=== PATIENT | male | born 1945 | race Caucasian/White ===

== ENCOUNTER 2024-04-14 13:37 | Emergency (ER) | payer MEDICARE, OTHER, SELFPAY ==
[2024-04-14 13:41] VITALS: BP 160/92
[2024-04-14 13:57] LABS: % Basophils 0.5 % (0-2); % Eosinophils 2.3 % (0-6); % Immature Granulocytes 0.3 % (0-0.5); % Lymphocytes 14.7 % (20.5-51.1); % Monocytes 12.5 % (1.7-9.3); % Neutrophils 69.7 % (42.2-75.2); Absolute Basophils 0.1 10^3/uL (0-0.2); Absolute Eosinophils 0.2 10^3/uL (0-0.7); Absolute Lymphocytes 1.3 10^3/uL (1.2-3.4); Absolute Monocytes 1.1 10^3/uL (0.1-0.6); Absolute Neutrophils 6.4 10^3/uL (1.4-6.5); Hematocrit 46.7 % (39.0-52.0); Hemoglobin 16.4 g/dL (13.0-18.0); Mean Corp Hgb Conc. 35.1 g/dL (33.0-37.0); Mean Corpuscular Hgb 32.2 pg (27.0-31.0); Mean Corpuscular Volume 91.6 fL (80.0-94.0); Mean Platelet Volume 9.1 fL (7.4-10.4); Nucleated Red Blood Cells % 0 % (-); Platelet Count 169 10^3/uL (130-400); Red Cell Dist. Width 13.2 % (11.5-14.5); White Blood Cell Count 9.1 10^3/uL (4.8-10.8)
[2024-04-14 14:09] LABS: ALT (SGPT) 27 U/L (0-50); AST (SGOT) 36 U/L (17-59); Albumin 4.1 g/dl (3.5-5.0); Alkaline Phosphatase 78 U/L (38-126); Blood Urea Nitrogen 32 mg/dl (9-20); Calcium 9.4 mg/dl (8.4-10.2); Carbon Dioxide 27 mmol/L (22-30); Chloride 103 mmol/L (98-107); Glucose 132 mg/dl (70-99); Lipase 114 U/L (23-300); Potassium 4.5 mmol/L (3.5-5.1); Sodium 141 mmol/L (135-145); Total Bilirubin 1.5 mg/dl (0.2-1.3); Total Protein 6.7 g/dl (6.3-8.2); eGFR 40.25
[2024-04-14 14:52] LABS: Urine Albumin Trace (Neg - Trace); Urine Bilirubin Negative (Negative); Urine Character Clear (Clear); Urine Color Yellow; Urine Glucose Negative (Negative); Urine Ketone Negative (Negative); Urine Leukocyte 2+ (Negative); Urine Nitrite Negative (Negative); Urine Occult Blood 3+ (Negative); Urine Urobilinogen Negative (Neg - 1+)
[2024-04-14 15:20] LABS: Urine Mucus Few
[2024-04-14 15:21] LABS: Urine Amorphous Seen; Urine Squamous Cell 0-2 /LPF (Few)
[2024-04-14 15:23] LABS: Urine Bacteria Few (Negative); Urine White Cell 30-40 /HPF (0-5)
--- NOTE | 2024-04-14 15:54 | ED.GENMED ---
History of Present Illness
General
Chief Complaint: Flank Pain
Time Seen by Provider: 04/14/24 15:24
History of Present Illness
History of Present Illness:
HPI: 3-4d of L low flank pain to LLQ intermittent in nature. Did not get seen at ER when he was in [place]. Was 8/10 now 4/10. No fevers. No N/V. Resolved COLEMAN.
EXAM:
GENERAL: Well appearing in no distress
HEENT: Moist oral mucosa
CARDIOVASCULAR: No murmurs, normal heart rate, regular rhythm, No chest wall tenderness
PULMONARY: No respiratory distress, breath sounds are clear and equal
ABDOMEN: Soft with no peritoneal signs, no tenderness, mild LLQ and L CVA tender
NEUROLOGIC: Excellent strength all extremities, no coordination deficits
PSYCHIATRIC: Appropriate mental status, normal insight and judgement
EXTREMITIES: Nontender, no edema, moves all extremities equally
SKIN: No rash, no lesions
TIME OF INITIAL ENCOUNTER: 5 PM
NUMBER AND COMPLEXITY OF PROBLEMS ADDRESSED AT THE ENCOUNTER
� Chronic conditions affecting care: Kidney stones, CAD/CABG, stable AAA, diverticular disease
� Acute Exacerbation and/or Progression of Chronic Illness: This is an acute problem
� Differential Diagnosis includes: Ureteral stone, infected stone, pyelonephritis
AMOUNT AND/OR COMPLEXITY OF DATA TO BE REVIEWED AND ANALYZED
� I performed an independent evaluation of and my interpretation is:
EKG:
CT: CT personally reviewed and at least 2 stones noted in the mid and distal left ureter
X-rays:
Laboratory Studies: Creatinine 1.7 which is acute, white count normal, total bili slightly elevated, other LFTs normal, lipase normal, 30-40 WBCs on urinalysis
Other:
� Review of other/old records: Last creatinine 0.9 in August 2022
� Clinical information was obtained by an independent historian: Spoke to at bedside
� Prescriptions/Medications Considered but not given:
� Further testing considered but not performed:
RISK OF COMPLICATIONS AND/OR MORBIDITY OR MORTALITY OF PATIENT MANAGEMENT
� Social determinants of health affecting care:
� Discussion with other providers: Messaged Dr. Anaya at 7:30 PM but no response as of 10 PM
� Escalation of care including admission/observation vs risk of discharge considered: The patient does have stones in the left ureter. There is no right ureteral obstruction. Renal function has worsened. He does have an
increased number of white cells in the urine however on reassessment prior to discharge, he feels 'fantastic' as he has noticed will plan discharge but he is to follow-up with urology. I have also placed patient on antibiotics for the possibility
of infection.
Past History
Past History
ED Past Medical History: CAD and Other (History of a pilonidal cyst, and a kidney stone many years ago)
ED Past Surgical History: Cardiac
Social History
Tobacco: Non-smoker
Alcohol: None
Drug: None
Personal:
Living: with family
Employment: Employed
Family History
Family History: Negative Diabetes or Hypertension
Phy Exam
Physical Exam
Physical Exam:
See HPI
Course
Orders/Labs/Results
Orders:
Orders
04/14/24 13:45
Complete Blood Count/With Diff Urgent
Comprehensive Metabolic Panel Urgent
Lipase Urgent
Urinalysis Reflex To Culture Urgent
Date Specimen was Collected: 04/14/24
Time Specimen was Collected: 13:42
Urine Microscopic Reflex Cult Urgent
Urine Culture Urgent
BETZY Source: U
Specimen Description:
Date Specimen was Collected: 04/14/24
Time Specimen was Collected: 13:42
04/14/24 15:59
CT Abd/pel Without Iv Or Oral Urgent
Comment:
Reason For Exam: L flank / LLQ pain; VANE
0.9% Sodium Chloride 1000 ml [Nss] 1,000 ml IV BOLUS
04/14/24 20:00
CefTRIAXone [Rocephin] 1,000 mg IV Q24H
Abnormal Lab Results
04/14/24
13:45
MCH 32.2 H pg
(27.0-31.0)
Absolute Monos (auto) 1.1 H 10^3/uL
(0.1-0.6)
Lymphocytes % 14.7 L %
(20.5-51.1)
Monocytes % 12.5 H %
(1.7-9.3)
BUN 32 H mg/dl
(9-20)
Creatinine 1.7 H mg/dL
(0.7-1.3)
Glucose 132 H mg/dl
(70-99)
Total Bilirubin 1.5 H mg/dl
(0.2-1.3)
Ur Occult Blood Reflex 3+ A
(Negative)
Leukocyte Esterase Rfl 2+ A
(Negative)
Urine RBC 3-6 A /HPF
(0-2)
Urine WBC (Reflex) 30-40 A /HPF
(0-5)
Urine Bacteria (Reflex) Few A
(Negative)
04/14/24 13:45
04/14/24 13:45
Vital Signs
Initial and Last Documented VS:
Initial Vital Signs
Temp Pulse Resp BP Pulse Ox
98.1 F 61 18 160/92 95
04/14/24 13:41 04/14/24 13:41 04/14/24 13:41 04/14/24 13:41 04/14/24 13:41
Last Documented Vital Signs
Temp Pulse Resp BP Pulse Ox
98.1 F 86 16 141/86 96
04/14/24 13:41 04/14/24 19:52 04/14/24 19:52 04/14/24 19:52 04/14/24 19:52
*Critical Care Note
Total Time (30-74mins, 75-104mins- exclusive of procedures): Not Applicable
ED Attending Note
ED Attending Note
Patient seen and examined by attending physician: Yes
I performed the substantive portion of visit, reviewed & personally made and approve the management plan that is documented in note by myself or SUMEET.: Yes
I performed a history and physical exam of patient and discussed management with resident, I reviewed resident's note and agree with documented findings and plan of care.: Yes
ED Attending Note:
As above
-
Portions of this chart may have been created with voice recognition software.� Occasional wrong word or��sound alike� substitutions may have occurred due to the inherent limitations of voice recognition software.
Discharge Plan
Departure
Patient Disposition: Home (Routine Discharge)
Date of Disposition: 04/14/24
Time of Disposition: 19:34
Patient with high blood pressure during this ER visit?: Yes
Discharge Problem:
Ureteral calculi
Prescriptions:
New
cephalexin 500 mg tablet
500 mg PO TID Qty: 21 0RF
oxycodone-acetaminophen [Percocet] 5-325 mg tablet
1 - 2 tab PO Q4HPRN PRN (Reason: pain) Qty: 14 0RF
ondansetron HCl 4 mg tablet
4 mg PO Q6H PRN (Reason: nausea and vomiting) Qty: 14 0RF
No Action
aspirin 81 MG tablet,delayed release (DR/EC)
81 mg PO HS
atorvastatin 80 mg tablet
80 mg PO HS
Referrals:
Jett Anaya MD [Active] - Tomorrow
Elida Ba DO [Family Provider] -
Activity Restrictions/Additional Instructions:
Your kidney function is newly impaired now with a creatinine of 1.7 (top normal is 1.3). Last year your creatinine was 0.9. You did have 30-40 white cells in your urine. However your temperature and white blood cell count in the bloodstream are
both normal. The radiologist notes a 7 mm stone in the distal left ureter along with 3 adjacent stones at the mid ureter. Call urology tomorrow for follow-up. I have given you the contact information for Dr. Anaya. I recommend not taking
any further NSAIDs such as Motrin/Advil/ibuprofen due to the impaired kidney function. Given the increased number of white cells in the urine, I have placed you on antibiotics as well.
Interventions
Interventions:
*Risk Screen - Suicide Last Done: 04/14/24 15:31
*General Assessment Last Done: 04/14/24 15:31
*Neglect/Abuse Screening Last Done: 04/14/24 19:58
ED- Fall Risk Assessment Last Done: 04/14/24 15:31
*ED COVID-19 Vaccine History Last Done: 04/14/24 15:31
*Nursing Disposition Last Done: 04/14/24 20:01
HL-Fgqsrr-Gbhhmrtobl Assessment Last Done: 04/14/24 15:31
ED-Male Genitourinary Assessment Last Done: 04/14/24 15:31
Discharge Date and Time
Discharge Date/Time: 04/14/24 20:01
Print Language: BRITISH
[2024-04-14] MEDS: NSS 1000 IV (16:36)
[2024-04-14 17:39] VITALS: BP 150/101
[2024-04-14] MEDS: ROCEPHIN 1000 MG IV (19:48)
[2024-04-14 19:52] VITALS: BP 141/86
== END 2024-04-14 20:01 | disposition home or self-care (01) ==
LOC: EMR 13:37
PROVIDERS: Student in an Organized Health Care Education/Training Program; EMERGENCY PHYSICIAN Emergency Medicine; FAMILY PHYSICIAN Family Medicine
DX: N13.2 Hydronephrosis with renal and ureteral calculous obstruction (principal); R03.0 Elevated blood-pressure reading, without diagnosis of hypertension; I25.10 Atherosclerotic heart disease of native coronary artery without angina pectoris; Z87.442 Personal history of urinary calculi; Z79.82 Long term (current) use of aspirin
CPT/HCPCS: 99284; 96374; 96361; 74176; 80053; 81003; 81015; 83690; 85025; 87086

== ENCOUNTER → 2024-05-14 07:28 | Outpatient (REF) | payer MEDICARE, OTHER, SELFPAY ==
[2024-05-14 08:42] LABS: HDL Cholesterol 44 mg/dl; LDL Cholesterol, Calculated 69 mg/dl; Total Cholesterol 132 mg/dl (50-199); Triglyceride 97 mg/dl (10-149); Very Low Density Lipoprotein 19 mg/dl (0-30)
== END ==
LOC: REG 07:28
PROVIDERS: ATTENDING PHYSICIAN Internal Medicine Cardiovascular Disease; FAMILY PHYSICIAN Family Medicine
DX: I25.10 Atherosclerotic heart disease of native coronary artery without angina pectoris (principal); E78.00 Pure hypercholesterolemia, unspecified
CPT/HCPCS: 36415; 80061

== ENCOUNTER → 2024-05-19 10:08 | Outpatient (REF) | payer MEDICARE, OTHER, SELFPAY | LOC: RAD 10:08 | PROVIDERS: ATTENDING PHYSICIAN Internal Medicine Cardiovascular Disease; FAMILY PHYSICIAN Family Medicine | DX: I71.42 Juxtarenal abdominal aortic aneurysm, without rupture (principal) | CPT/HCPCS: 76770 ==

== ENCOUNTER → 2024-05-25 09:27 | Outpatient (REF) | payer MEDICARE, OTHER, SELFPAY ==
[2024-05-25 11:05] LABS: Uric Acid 5.9 mg/dl (3.5-8.5)
== END ==
LOC: REG 09:27
PROVIDERS: ATTENDING PHYSICIAN Specialist; FAMILY PHYSICIAN Family Medicine; REFERRING PHYSICIAN Specialist
DX: N20.1 Calculus of ureter (principal); N20.0 Calculus of kidney
CPT/HCPCS: 36415; 84550

== ENCOUNTER → 2024-06-02 09:20 | Outpatient (REF) | payer MEDICARE, OTHER, SELFPAY ==
[2024-06-02 11:06] LABS: ALT (SGPT) 29 U/L (0-50); AST (SGOT) 28 U/L (17-59); Albumin 4.5 g/dl (3.5-5.0); Alkaline Phosphatase 80 U/L (38-126); Blood Urea Nitrogen 18 mg/dl (9-20); Calcium 9.6 mg/dl (8.4-10.2); Carbon Dioxide 29 mmol/L (22-30); Chloride 102 mmol/L (98-107); Glucose 151 mg/dl (70-99); Potassium 4.7 mmol/L (3.5-5.1); Sodium 142 mmol/L (135-145); Total Bilirubin 1.1 mg/dl (0.2-1.3); Total Protein 7.1 g/dl (6.3-8.2); eGFR > 60.00
== END ==
LOC: REG 09:20
PROVIDERS: ATTENDING PHYSICIAN Specialist; FAMILY PHYSICIAN Family Medicine
DX: N20.0 Calculus of kidney (principal)
CPT/HCPCS: 36415; 80053; 82365

== ENCOUNTER 2024-08-20 18:11 | Emergency (ER) | payer MEDICARE, OTHER, SELFPAY ==
[2024-08-20 18:11] VITALS: BMI 26.8
[2024-08-20 18:34] VITALS: BP 159/92
--- NOTE | 2024-08-20 18:46 | ED.GENMED ---
ED Provider Triage
<GRAYSON Lawrence - Last Filed: 08/20/24 19:21>
-
Patient seen by provider in Triage?: Seen in Triage
Attestation: A medical screening examination has been initiated by a qualified medical provider. Based on the assessment performed at this time, it has been determined that an emergent medical condition may exist and the patient has been informed
that further medical evaluation and possible additional diagnostic testing may be needed.
HPI: Patient is an 79-year-old male that was brought to the ER by for evaluation of confusion. reports they had sexual intercourse around 4:30 - 5 pm . reports pt used OTC Eroxon cream for rectal dysfunction for the first time.
reports after intercourse she noticed the patient was acting funny and could not remember certain things. He filled the bathtub to get the bath but could not remember filling the bathtub and was confused about events throughout the day.
Patient now arrives asymptomatic. He does recall not being able to remember certain things. Denies any headache. No focal deficits on exam.
GENERAL: Alert , in no apparent distress
EYE: No visual abnormalities.
NECK: Trachea midline
ENT: No visible abnormalities.
LUNGS: No acute respiratory distress
NEUROLOGICAL: Alert and oriented
SKIN: Skin intact. No visible changes.
MUSCULOSKELETAL: Moving extremities normally
PSYCH: Normal and appropriate interaction.
This is a medical evaluation conducted in person to initiate diagnostic evaluation and provide initial therapeutics. Please see further documentation by the treating clinician.
History of Present Illness
<GRAYSON Lawrence - Last Filed: 08/20/24 19:21>
General
Chief Complaint: Medication Reaction
Time Seen by Provider: 08/20/24 19:48
<Nikia Jones DO - Last Filed: 08/20/24 21:14>
History of Present Illness
History of Present Illness:
79-year-old male with history of CAD status post CABG presenting to the emergency department with concern of memory loss. Patient reports around 4:30 PM he was trying a new medication, Eroxon, which is an erectile dysfunction topical medication.
Patient used the medication, went to draw a bath, and then could not remember preceding events. After about an hour and a half, started to remember what had happened. No report of any syncope per . Patient presently denying any acute
complaints. Denies any weakness, numbness, visual changes. denies any issues with his speech, he appeared confused at the time, however is now normal. He has never tried this medication before. No additional history obtained at this time
Past History
<GRAYSON Lawrence - Last Filed: 08/20/24 19:21>
Past History
ED Past Medical History: CAD and Other (History of a pilonidal cyst, and a kidney stone many years ago)
ED Past Surgical History: Cardiac
Social History
Tobacco: Non-smoker
Alcohol: None
Drug: None
Personal:
Living: with family
Employment: Employed
Family History
Family History: Negative Diabetes or Hypertension
Phy Exam
<Nikia Jones DO - Last Filed: 08/20/24 21:14>
Physical Exam
Physical Exam:
General: Well-appearing, no clinical signs of dehydration, nontoxic and in no acute distress
HEENT: protecting airway
Neck: appears supple
CV: Normal heart rate, regular rhythm, no evidence of cyanosis
Resp: No accessory muscle use, no increased work of breathing, lungs clear to auscultation bilaterally
Abd: Soft and non-distended, no tenderness to palpation
Extremities: No deformities, no swelling, no erythema
Neuro: alert, no focal neurologic deficit
: deferred
Rectal: deferred
Psych: Normal affect
Skin: Intact
Scores
<Nikia Jones DO - Last Filed: 08/20/24 21:14>
NIH Stroke Score
Level of Consciousness: 0 - Alert
LOC Questions: 0-Answers both correctly
LOC Commands: 0-Performs both correctly
Best Horizontal Gaze: 0-Normal
Visual [place]: 0=Normal, no visual loss
Facial Palsy: 0=Normal, symmetrical
Motor - Right Arm: 0=No drift 10 seconds
Motor - Left Arm: 0=No drift 10 seconds
Motor - Right Le-No drift 5 seconds
Motor - Left Le-No drift 5 seconds
Limb Ataxia: 0-Absent
Sensation: 0-Normal
Best Language: 0-No aphasia
Dysarthria: 0-Normal
Extinction and Inattention: 0-No abnormality
Total Score:: 0
Course
<GRAYSON Lawrence - Last Filed: 08/20/24 19:21>
Orders/Labs/Results
Orders:
Orders
08/20/24 18:43
Electrocardiogram (*1) Urgent
Reason for Study: TIA/Stroke
08/20/24 18:44
EKG- Treatment ONCE
08/20/24 19:02
CMP [Comprehensive Metabolic Panel] Urgent
Complete Blood Count/With Diff Urgent
Troponin I Urgent
Comment: ADD ON
08/20/24 19:05
CT Head W/o Iv Contrast Stat
Comment:
Reason For Exam: acute confusion
08/20/24 19:20
Add On- LAB Urgent
Tests Added?: troponin
Abnormal Lab Results
08/20/24
19:02
MCH 31.8 H pg
(27.0-31.0)
Absolute Monos (auto) 0.9 H 10^3/uL
(0.1-0.6)
Lymphocytes % 16.6 L %
(20.5-51.1)
Monocytes % 10.1 H %
(1.7-9.3)
BUN 21 H mg/dl
(9-20)
Glucose 129 H mg/dl
(70-99)
08/20/24 19:02
08/20/24 19:02
Vital Signs
Initial and Last Documented VS:
Initial Vital Signs
Temp Pulse Resp BP Pulse Ox
98.1 F 90 16 159/92 97
08/20/24 18:34 08/20/24 18:34 08/20/24 18:34 08/20/24 18:34 08/20/24 18:34
Last Documented Vital Signs
Temp Pulse Resp BP Pulse Ox
98.1 F 85 18 167/90 97
08/20/24 18:34 08/20/24 21:00 08/20/24 21:00 08/20/24 21:00 08/20/24 21:00
<Nikia Jones, DO - Last Filed: 08/20/24 21:14>
Orders/Labs/Results
Orders:
Orders
08/20/24 18:43
Electrocardiogram (*1) Urgent
Reason for Study: TIA/Stroke
08/20/24 18:44
EKG- Treatment ONCE
08/20/24 19:02
CMP [Comprehensive Metabolic Panel] Urgent
Complete Blood Count/With Diff Urgent
Troponin I Urgent
Comment: ADD ON
08/20/24 19:05
CT Head W/o Iv Contrast Stat
Comment:
Reason For Exam: acute confusion
08/20/24 19:20
Add On- LAB Urgent
Tests Added?: troponin
Abnormal Lab Results
08/20/24
19:02
MCH 31.8 H pg
(27.0-31.0)
Absolute Monos (auto) 0.9 H 10^3/uL
(0.1-0.6)
Lymphocytes % 16.6 L %
(20.5-51.1)
Monocytes % 10.1 H %
(1.7-9.3)
BUN 21 H mg/dl
(9-20)
Glucose 129 H mg/dl
(70-99)
08/20/24 19:02
08/20/24 19:02
Vital Signs
Initial and Last Documented VS:
Initial Vital Signs
Temp Pulse Resp BP Pulse Ox
98.1 F 90 16 159/92 97
08/20/24 18:34 08/20/24 18:34 08/20/24 18:34 08/20/24 18:34 08/20/24 18:34
Last Documented Vital Signs
Temp Pulse Resp BP Pulse Ox
98.1 F 85 18 167/90 97
08/20/24 18:34 08/20/24 21:00 08/20/24 21:00 08/20/24 21:00 08/20/24 21:00
<Nikia Jones, - Last Filed: 08/20/24 21:14>
MDM/Problems Addressed
MDM/Problems Addressed:
79-year-old male with history of CAD status post CABG presenting with memory loss. Vital signs and arrival significant for mild hypertension.
On exam patient is well-appearing, no acute distress, asymptomatic. Patient seen by provider in triage prior to my assessment, with laboratory analysis obtained as well as CT brain imaging. Workup thus far unremarkable. EKG nonischemic. No focal
neurologic deficits on exam with overall low suspicion for acute CVA. TIA is a consideration given resolution of symptoms, however appears more consistent with medication reaction given that symptoms started immediately after medication usage.
Possibly from vasodilatory effects. Did discuss with neurology, in agreement with lower suspicion for acute neurologic process.
21:10 -Troponin within normal limits. On reassessment patient remained stable and asymptomatic. Feel stable for discharge with close the patient primary care follow-up. Patient will no longer use this medication. Advised to follow-up with
primary care doctor for possible MRI imaging, and return to the ER if any symptoms return.
<Nikia Jones DO - Last Filed: 08/20/24 21:14>
*EKG
Interpreted by ED Provider?: Yes
EKG Intrepretation Date: 08/20/24
EKG Intrepretation Time: 20:31
Interpretation: normal
Heart Rate: 85
Rate: normal
Rhythm: sinus and PVC's
[place]: normal axis
Interval: normal interval
QRS Pattern: normal QRS
Ischemia: no ischemia
*Critical Care Note
Total Time (30-74mins, 75-104mins- exclusive of procedures): Not Applicable
ED Attending Note
<GRAYSON Lawrence - Last Filed: 08/20/24 19:21>
-
Portions of this chart may have been created with voice recognition software.� Occasional wrong word or��sound alike� substitutions may have occurred due to the inherent limitations of voice recognition software.
Discharge Plan
Departure
Prescriptions:
No Action
aspirin 81 MG tablet,delayed release (DR/EC)
81 mg PO HS
atorvastatin 80 mg tablet
80 mg PO HS
cephalexin 500 mg tablet
500 mg PO TID Qty: 21 0RF
oxycodone-acetaminophen [Percocet] 5-325 mg tablet
1 - 2 tab PO Q4HPRN PRN (Reason: pain) Qty: 14 0RF
ondansetron HCl 4 mg tablet
4 mg PO Q6H PRN (Reason: nausea and vomiting) Qty: 14 0RF
Referrals:
Elida Ba DO [Family Provider] -
Interventions
Interventions:
*General Assessment Last Done: 08/20/24 20:35
*ED COVID-19 Vaccine History Last Done: 08/20/24 20:35
ED-Skin Assessment Last Done: 08/20/24 20:37
ED- Pulmonary Assessment Last Done: 08/20/24 20:37
ED-EENT Assessment Last Done: 08/20/24 20:37
Discharge Date and Time
Print Language: FRENCH
[2024-08-20 19:12] LABS: % Basophils 0.5 % (0-2); % Eosinophils 1.9 % (0-6); % Immature Granulocytes 0.5 % (0-0.5); % Lymphocytes 16.6 % (20.5-51.1); % Monocytes 10.1 % (1.7-9.3); % Neutrophils 70.4 % (42.2-75.2); Absolute Eosinophils 0.2 10^3/uL (0-0.7); Absolute Lymphocytes 1.4 10^3/uL (1.2-3.4); Absolute Monocytes 0.9 10^3/uL (0.1-0.6); Absolute Neutrophils 5.9 10^3/uL (1.4-6.5); Hematocrit 47.4 % (39.0-52.0); Hemoglobin 16.6 g/dL (13.0-18.0); Mean Corpuscular Hgb 31.8 pg (27.0-31.0); Mean Corpuscular Volume 90.8 fL (80.0-94.0); Mean Platelet Volume 8.2 fL (7.4-10.4); Nucleated Red Blood Cells % 0 % (-); Platelet Count 154 10^3/uL (130-400); Red Blood Cell Count 5.22 10^6/uL (4.70-6.10); Red Cell Dist. Width 12.8 % (11.5-14.5); White Blood Cell Count 8.4 10^3/uL (4.8-10.8)
[2024-08-20 19:26] LABS: ALT (SGPT) 30 U/L (0-50); AST (SGOT) 27 U/L (17-59); Albumin 4.3 g/dl (3.5-5.0); Alkaline Phosphatase 82 U/L (38-126); Blood Urea Nitrogen 21 mg/dl (9-20); Calcium 9.5 mg/dl (8.4-10.2); Carbon Dioxide 25 mmol/L (22-30); Chloride 103 mmol/L (98-107); Estimated Creatinine Clearance 88 ml/min; Glucose 129 mg/dl (70-99); Potassium 4.2 mmol/L (3.5-5.1); Sodium 138 mmol/L (135-145); Total Bilirubin 0.5 mg/dl (0.2-1.3); Total Protein 7.1 g/dl (6.3-8.2); eGFR > 60.00
[2024-08-20 19:52] VITALS: BP 156/98
[2024-08-20 20:00] VITALS: BP 161/90
[2024-08-20 21:00] VITALS: BP 167/90
[2024-08-20 21:12] LABS: Troponin I 0.017 ng/ml
== END 2024-08-20 21:29 | disposition home or self-care (01) ==
LOC: EMR 18:11
PROVIDERS: Nurse Practitioner; EMERGENCY PHYSICIAN Student in an Organized Health Care Education/Training Program; FAMILY PHYSICIAN Family Medicine
DX: R41.3 Other amnesia (principal); R41.0 Disorientation, unspecified; I25.10 Atherosclerotic heart disease of native coronary artery without angina pectoris; Z95.1 Presence of aortocoronary bypass graft
CPT/HCPCS: 99284; 70450; 80053; 84484; 85025; 93005

== ENCOUNTER → 2024-10-01 10:41 | Outpatient (REF) | payer MEDICARE, OTHER, SELFPAY | LOC: PAVMRI 10:41 | PROVIDERS: ATTENDING PHYSICIAN Family Medicine | DX: R41.3 Other amnesia (principal) | CPT/HCPCS: 70546; 70553; A9585 ==

== ENCOUNTER 2024-10-07 06:15 | Emergency (ER) | payer MEDICARE, OTHER, SELFPAY ==
[2024-10-07 06:17] VITALS: BP 186/110
--- NOTE | 2024-10-07 08:36 | ED.GENMED ---
History of Present Illness
General
Chief Complaint: Ear Problem
Source: patient
Time Seen by Provider: 10/07/24 08:25
History of Present Illness
History of Present Illness:
79-year-old male presenting to the emergency department for evaluation after getting a Q-tip stuck within the auditory canal of the left ear at approximately 6 AM this morning. Patient unable to retrieve on his own and came to the ER for further
evaluation. No other concerns at this time
Past History
Past History
ED Past Medical History: CAD, Hypercholesterolemia and Other (History of a pilonidal cyst, and a kidney stone many years ago)
ED Past Surgical History: Bowel resection, Cardiac and Other
Social History
Tobacco: Non-smoker
Alcohol: None
Drug: None
Personal:
Living: with family
Employment: Employed
Family History
Family History: Negative Diabetes or Hypertension
Review of Systems
Review of Systems
All Other Systems: ROS reviewed and negative except as documented in HPI and ROS
Phy Exam
Physical Exam
Physical Exam:
GENERAL: Alert , in no apparent distress
EYE: conjunctiva clear
Head: Normocephalic atraumatic
NECK: Supple,
ENT: mmm. Auditory canal the right ear is clear, TM clear and pearly. Left auditory canal with foreign body noted at the posterior portion. Unable to visualize TM. No drainage.
LUNGS: no acute respiratory distress
NEUROLOGICAL: Alert and oriented
SKIN: Warm and dry, skin intact.
MUSCULOSKELETAL: well perfused.
PSYCH: Normal and appropriate interaction.
Scores
Heart Failure Risk
Heart Failure Risk Score: Not Applicable
Heart Score for Chest Pain Patients
STEMI patient?: Not applicable
Withdrawal Assessment of Alcohol
Withdrawal Assessment Completed?: Not applicable
Course
Vital Signs
Initial and Last Documented VS:
Initial Vital Signs
Temp Pulse Resp BP Pulse Ox
98 F 66 18 186/110 98
10/07/24 06:17 10/07/24 06:17 10/07/24 06:17 10/07/24 06:17 10/07/24 06:17
Last Documented Vital Signs
Temp Pulse Resp BP Pulse Ox
98 F 66 18 186/110 98
10/07/24 06:17 10/07/24 06:17 10/07/24 06:17 10/07/24 06:17 10/07/24 06:17
Procedures
Foreign Body Removal-Ear
Left External canal:
Tenderness: none
Any local drainage: none
Removal of foreign body using: alligator forceps
Additional Information:
Mild erythematous changes to the superior portion of the tympanic membrane but no perforation
MDM/Problems Addressed
Differential Diagnosis Includes:
Foreign body, TM perforation, otitis media, otitis externa
MDM/Problems Addressed:
79-year-old male presenting to the ER for evaluation of foreign body within the left external auditory canal. Foreign body removed without any difficulties using alligator forceps. There was some mild erythema to the left TM following removal.
Advised patient may have some tenderness or discomfort and he can take Motrin or Tylenol for the pain as needed. Patient otherwise stable for discharge home.
*Pulse Oximetry
Patient hypoxic: no
*Critical Care Note
Total Time (30-74mins, 75-104mins- exclusive of procedures): Not Applicable
ED Attending Note
-
Portions of this chart may have been created with voice recognition software.� Occasional wrong word or��sound alike� substitutions may have occurred due to the inherent limitations of voice recognition software.
Discharge Plan
Departure
Patient Disposition: Home (Routine Discharge)
Date of Disposition: 10/07/24
Time of Disposition: 08:36
Patient with high blood pressure during this ER visit?: Yes
Discharge Problem:
Acute foreign body of left ear canal
Instructions: Foreign Body in Ear (DC)
Prescriptions:
No Action
aspirin 81 MG tablet,delayed release (DR/EC)
81 mg PO HS
atorvastatin 80 mg tablet
80 mg PO HS
cephalexin 500 mg tablet
500 mg PO TID Qty: 21 0RF
oxycodone-acetaminophen [Percocet] 5-325 mg tablet
1 - 2 tab PO Q4HPRN PRN (Reason: pain) Qty: 14 0RF
ondansetron HCl 4 mg tablet
4 mg PO Q6H PRN (Reason: nausea and vomiting) Qty: 14 0RF
Referrals:
Elida Ba DO [Family Provider] -
Interventions
Interventions:
*Risk Screen - Suicide Last Done: 10/07/24 06:17
*Neglect/Abuse Screening Last Done: 10/07/24 06:17
*Nursing Disposition Last Done: 10/07/24 08:40
Discharge Date and Time
Discharge Date/Time: 10/07/24 08:40
Print Language: POLISH
== END 2024-10-07 08:40 | disposition home or self-care (01) ==
LOC: EMR 06:15
PROVIDERS: EMERGENCY PHYSICIAN Emergency Medicine; FAMILY PHYSICIAN Family Medicine
DX: T16.2XXA Foreign body in left ear, initial encounter (principal); W44.8XXA Other foreign body entering into or through a natural orifice, initial encounter; E78.00 Pure hypercholesterolemia, unspecified; I25.10 Atherosclerotic heart disease of native coronary artery without angina pectoris
CPT/HCPCS: 69200; 99282

== ENCOUNTER → 2025-01-12 07:03 | Outpatient (REF) | payer MEDICARE, OTHER, SELFPAY ==
[2025-01-12 07:36] LABS: Hematocrit 49.4 % (39.0-52.0); Hemoglobin 16.9 g/dL (13.0-18.0); Mean Corp Hgb Conc. 34.2 g/dL (33.0-37.0); Mean Corpuscular Hgb 32.1 pg (27.0-31.0); Mean Corpuscular Volume 93.9 fL (80.0-94.0); Mean Platelet Volume 8.4 fL (7.4-10.4); Platelet Count 153 10^3/uL (130-400); Red Blood Cell Count 5.26 10^6/uL (4.70-6.10); Red Cell Dist. Width 13.4 % (11.5-14.5); White Blood Cell Count 6.3 10^3/uL (4.8-10.8)
[2025-01-12 08:16] LABS: ALT (SGPT) 28 U/L (0-50); AST (SGOT) 26 U/L (17-59); Albumin 4.3 g/dl (3.5-5.0); Alkaline Phosphatase 73 U/L (38-126); Blood Urea Nitrogen 24 mg/dl (9-20); Calcium 8.9 mg/dl (8.4-10.2); Carbon Dioxide 26 mmol/L (22-30); Chloride 108 mmol/L (98-107); Glucose 126 mg/dl (70-99); Potassium 4.1 mmol/L (3.5-5.1); Sodium 143 mmol/L (135-145); Total Bilirubin 1.1 mg/dl (0.2-1.3); Uric Acid 6.9 mg/dl (3.5-8.5); eGFR > 60.00
[2025-01-12 10:01] LABS: Glycohemoglobin (HgbA1c) 5.8 % (4.0-5.6)
== END ==
LOC: REG 07:03
PROVIDERS: ATTENDING PHYSICIAN Specialist; FAMILY PHYSICIAN Family Medicine
DX: N20.0 Calculus of kidney (principal); Z13.1 Encounter for screening for diabetes mellitus; I10 Essential (primary) hypertension
CPT/HCPCS: 36415; 80053; 83036; 84550; 85027

== ENCOUNTER 2025-04-20 16:07 | Emergency (ER) | payer MEDICARE, OTHER, SELFPAY ==
[2025-04-20 16:15] VITALS: BP 148/96
[2025-04-20 16:45] LABS: Hematocrit 48.8 % (39.0-52.0); Hemoglobin 16.8 g/dL (13.0-18.0); Mean Corp Hgb Conc. 34.4 g/dL (33.0-37.0); Mean Corpuscular Volume 92.6 fL (80.0-94.0); Nucleated Red Blood Cells % 0 % (-); Platelet Count 180 10^3/uL (130-400); Red Cell Dist. Width 13.6 % (11.5-14.5)
[2025-04-20] MEDS: MOTRIN 600 MG PO (20:26)
--- NOTE | 2025-04-20 20:31 | ED.GENMED ---
History of Present Illness
General
Chief Complaint: Chest Pain
Source: patient and spouse
Exam Limitations: none
Time Seen by Provider: 04/20/25 19:57
Nursing documentation reviewed up to this point in time: agreed with
History of Present Illness
History of Present Illness:
80-year-old male distant history of triple bypass, presents with left scapular pain woke up with it this morning worse with movement and when he is palpated in the spot, no shortness of breath no pain at rest he is very active was golfing recently,
does not specifically recommend injuring it, symptoms have been going on since this morning, no nausea vomiting or diaphoresis, he does not quite remember his symptoms when he had his triple bypass, he is very active, is not obese not known to be
diabetic does not smoke compliant with his meds and his statin
Past History
Past History
ED Past Medical History: CAD, Hypercholesterolemia and Other (History of a pilonidal cyst, and a kidney stone many years ago)
ED Past Surgical History: Bowel resection, Cardiac and Other
Social History
Tobacco: Non-smoker
Alcohol: None
Drug: None
Personal:
Living: with family
Employment: Employed
Family History
Family History: Negative Diabetes or Hypertension
Phy Exam
Physical Exam
Physical Exam:
Physical Exam
General: no apparent distress, not acutely ill
Neck: No jaundice
Heart: s1/s2 regular rate and rhythm, no murmur. equal radial pulses.
Lungs: no acute respiratory distress. clear bilaterally----point tender over the scapula no rash no crepitus
Abdomen: Nontender
Neuro: alert and oriented. no focal neurological deficits
Skin: no rash
Psychiatric: well kept. interactive and cooperative
Extremities: no edema. no calf tenderness
Scores
Heart Score for Chest Pain Patients
STEMI patient?: No
History: Slightly or Non-Suspicious
ECG: Normal
Age: >/= 65 years
Risk Factors: >/= 3 Risk Factors or History of CAD
Troponin: </= Normal Limit
Heart Score for Chest Pain Patients: 4
Heart Score Risk: 20.3% MACE over next 6 weeks
Course
Orders/Labs/Results
Orders:
Orders
04/20/25 16:09
EKG [Electrocardiogram (*1)] Urgent
Reason for Study: Chest Pain
EKG- Treatment ONCE
04/20/25 16:26
Complete Blood Count/With Diff Urgent
04/20/25 20:20
Ibuprofen [Motrin] 600 mg PO NOW STA
CR Chest - 2 Views Urgent
Comment:
Reason For Exam: shoulder blader pain
04/20/25 20:40
Troponin I Urgent
04/20/25 20:48
Comprehensive Metabolic Panel Urgent
Abnormal Lab Results
04/20/25 04/20/25
16:26 20:48
MCH 31.9 H pg
(27.0-31.0)
Absolute Monos (auto) 1.0 H 10^3/uL
(0.1-0.6)
Lymphocytes % 18.9 L %
(20.5-51.1)
Monocytes % 11.2 H %
(1.7-9.3)
BUN 22 H mg/dl
(9-20)
Glucose 116 H mg/dl
(70-99)
04/20/25 16:26
04/20/25 20:48
Vital Signs
Initial and Last Documented VS:
Initial Vital Signs
Temp Pulse Resp BP Pulse Ox
98.5 F 87 14 148/96 99
04/20/25 16:15 04/20/25 16:15 04/20/25 16:15 04/20/25 16:15 04/20/25 16:15
Last Documented Vital Signs
Temp Pulse Resp BP Pulse Ox
98.5 F 87 14 148/96 99
04/20/25 16:15 04/20/25 16:15 04/20/25 16:15 04/20/25 16:15 04/20/25 20:31
MDM/Problems Addressed
Differential Diagnosis Includes:
Strain contusion musculoskeletal pain less likely ACS pneumo doubt PE
MDM/Problems Addressed:
Scapular pain
Chronic conditions affecting care: CAD
Acute Exacerbation and/or Progression of Chronic Illness: CAD
*Radiology
Radiology exam reviewed: preliminary read by ED provider
*Pulse Oximetry
SaO2: 99
Oxygen Mode of Delivery: Room air
Patient hypoxic: no
*EKG
Interpreted by ED Provider?: Yes
Interpretation: normal
Comparison EKG: no comparison EKG present
Heart Rate: 78
Rate: normal
Ischemia: other (pvcs)
*Paralegal Interpretation
Rate: normal
Interpretation: normal
Heart Rate: 78
Rhythm: sinus
*Critical Care Note
Total Time (30-74mins, 75-104mins- exclusive of procedures): Not Applicable
Update Note
Update Note:
9:45 PM chest x-ray report noted troponin undetectable symptoms for greater than 12 hours
ED Attending Note
-
Portions of this chart may have been created with voice recognition software.� Occasional wrong word or��sound alike� substitutions may have occurred due to the inherent limitations of voice recognition software.
Discharge Plan
Departure
Patient Disposition: Home (Routine Discharge)
Date of Disposition: 04/20/25
Time of Disposition: 21:52
Patient with high blood pressure during this ER visit?: No
Condition: Good
Discharge Problem:
Back pain
Instructions: Exercises for Upper Back Pain
Prescriptions:
No Action
aspirin 81 MG tablet,delayed release (DR/EC)
81 mg PO HS
atorvastatin 80 mg tablet
80 mg PO HS
cephalexin 500 mg tablet
500 mg PO TID Qty: 21 0RF
oxycodone-acetaminophen [Percocet] 5-325 mg tablet
1 - 2 tab PO Q4HPRN PRN (Reason: pain) Qty: 14 0RF
ondansetron HCl 4 mg tablet
4 mg PO Q6H PRN (Reason: nausea and vomiting) Qty: 14 0RF
Referrals:
UNKNOWN - PT DOES,NOT KNOW [Unknown Provider]
Activity Restrictions/Additional Instructions:
Tylenol or ibuprofen for pain return to the ER if chest pain shortness of breath nausea vomiting or any other concerns
Interventions
Interventions:
*Risk Screen - Suicide Last Done: 04/20/25 16:15
*General Assessment Last Done: 04/20/25 16:15
*Neglect/Abuse Screening Last Done: 04/20/25 16:15
*ED COVID-19 Vaccine History Last Done: 04/20/25 16:15
Discharge Date and Time
Print Language: MALTESE
[2025-04-20 21:11] LABS: ALT (SGPT) 30 U/L (0-50); AST (SGOT) 27 U/L (17-59); Albumin 4.8 g/dl (3.5-5.0); Alkaline Phosphatase 77 U/L (38-126); Blood Urea Nitrogen 22 mg/dl (9-20); Calcium 9.6 mg/dl (8.4-10.2); Carbon Dioxide 27 mmol/L (22-30); Chloride 104 mmol/L (98-107); Glucose 116 mg/dl (70-99); Potassium 4.2 mmol/L (3.5-5.1); Sodium 138 mmol/L (135-145); Total Protein 7.9 g/dl (6.3-8.2); eGFR > 60.00
[2025-04-20 21:13] LABS: Troponin I < 0.012 ng/ml
== END 2025-04-20 22:18 | disposition home or self-care (01) ==
LOC: EMR 16:07
PROVIDERS: Student in an Organized Health Care Education/Training Program; EMERGENCY PHYSICIAN Emergency Medicine; FAMILY PHYSICIAN Family Medicine
DX: M54.9 Dorsalgia, unspecified (principal); I25.10 Atherosclerotic heart disease of native coronary artery without angina pectoris; E78.00 Pure hypercholesterolemia, unspecified; Z95.1 Presence of aortocoronary bypass graft
CPT/HCPCS: 99285; 71046; 80053; 84484; 85025; 93005